=== PATIENT | female | born 1975 | race Caucasian/White ===

== ENCOUNTER 2020-05-16 11:32 | Emergency (ER) | payer SELFPAY ==
[2020-05-16 11:55] VITALS: BP 129/94; PULSE 96; RESP 18; TEMP 36.6; O2SAT 96
--- NOTE | 2020-05-16 12:07 | ED.GENADULT ---
HPI - General Adult General Chief complaint: Back Pain/Injury Stated complaint: Radiating Lower Back Pain Time Seen by Provider: 05/16/20 12:07 Source: patient and RN notes reviewed Mode of arrival: ambulatory Limitations: no limitations History of Present Illness HPI narrative: 44-year-old female presents with complaints of right lower back with pain radiating down right leg for the past 21 days. Jeanie reports pain has increased over the past 48 hours. Ultram and Flexeril last on May 15, 2019 and Tylenol last this morning at 2 AM without relief. Denies new injuries or falls. Denies radiating pain, numbness, or tingling. Denies fever or chills. No upper or lower extremity pain or weakness. Exacerbating factors consist of prolong standing and bending. Denies nausea, vomiting, or abdominal pain. Tolerating po intake well. Denies problems with urinating or having a bowel movement, LBM 05/16/19 per patient and normal. No flank pain or hematuria or dysuria. LMP 04/18/20. Remains active. The patient reports she have not been diagnosed with COVID-19. The patient reports she is not waiting for the results of a COVID-19 lab test. The patient reports she do not have fever, chills, weakness, or fatigue. The patient reports she do not have a new or worsening cough or shortness of breath. Denies chest pain. The patient reports she do not have any rhinorrhea, congestion, sore throat, loss of taste, and diarrhea. Denies recent traveling. Denies concerns for COVID-19 or exposures been home with limited outdoor exposure except for essential household needs, work, and return home. At this time, patient is not suspected of having COVID-19. Some parts of this dictation were generated by voice recognition software and may contain typographical and/or grammatical inaccuracies. Related Data Allergies Allergy/AdvReac Type Severity Reaction Status Date / Time Sulfa (Sulfonamide Allergy Unknown Rash Verified 05/16/20 12:02 Antibiotics) Review of Systems Review of Systems: Narrative: CONSTITUTIONAL: Denies fever, chills, sweats. EYES: Denies visual changes, redness, discharge. ENT: Denies rhinorrhea, congestion, sore throat, otalgia. CARDIOVASCULAR: Denies chest pain, palpitations, edema. RESPIRATORY: Denies dyspnea, wheezing, cough. GASTROINTESTINAL: Denies abdominal pain, nausea, vomiting, diarrhea. GENITOURINARY: Denies dysuria, hematuria, abnormal discharge. SKIN: Denies rash or itching. MUSCULOSKELETAL: Complains of RT lower back pain with pain radiating down right leg, denies joint pain or myalgia. NEUROLOGIC: Denies numbness or focal weakness. PSYCHIATRIC: Denies anxiety or depression. All systems reviewed & are unremarkable except as noted in HPI and below PMFSH Past Medical History Medical History (Updated 05/17/20 @ 00:00 by Vik Austin) delivery delivered Endometriosis Hernia Umbilical Nerve damage Surgical History Surgical History (Updated 05/16/20 @ 12:49 by YESSENIA Chase) H/O section X2 History of colonoscopy History of dental surgery History of esophagogastroduodenoscopy (EGD) X2 History of hernia surgery Umbilical hernia History of laminectomy Family History Family History (Updated 05/16/20 @ 12:51 by YESSENIA Chase) Father Unknown family medical history Mother Hypertension Grandparent Hypertension Diabetes mellitus Hypercholesteremia Social History Social History (Updated 05/16/20 @ 12:52 by YESSENIA Chase) Smoking packs per day: 1 Smoking cigarettes per day: 20.0 Years smoked: 30 Smoking pack-years: 30.00 Smoking status: Current every day smoker Second hand tobacco smoke exposure: Yes Alcohol intake: current Substance use: current Substance use type: marijuana Living arrangements: with family Occupation/Education: occupation Gender identity (if verbalized by the patient): Female Sexual Orientation
[2020-05-16] MEDS: KETOROLAC (*BKC) 60 MG/2 ML VIAL IM (12:25)
[2020-05-16 12:33] VITALS: BP 118/78; PULSE 86
== END 2020-05-16 12:45 | disposition home or self-care (01) ==
PROVIDERS: Emergency Provider Nurse Practitioner Family; PCP Nurse Practitioner Family
DX: M54.41 Lumbago with sciatica, right side (principal); F17.210 Nicotine dependence, cigarettes, uncomplicated; N80.9 Endometriosis, unspecified
CPT/HCPCS: 96372; 99203; G0463; J1885

== ENCOUNTER 2024-03-03 13:52 | Emergency (ER) | payer SELFPAY ==
[2024-03-03 14:01] VITALS: BP 121/73; PULSE 67; RESP 16; TEMP 37.3; O2SAT 100
--- NOTE | 2024-03-03 15:24 | ED.DENTAL ---
HPI - Dental/Oral General Chief complaint: Dental/Oral Stated complaint: right side of face swollen Source: patient Mode of arrival: ambulatory Limitations: no limitations History of Present Illness HPI Narrative: Pt presents for evaluation of right lower dental pain. Symptom onset a few days ago. She has been gargling with salt water and hydrogen peroxide. Today, she woke from sleep with right sided facial swelling. She describes her pain as throbbing and states it is so severe that it has caused her to have episodes of crying. She denies any fever, chills, nausea, vomiting, probably breathing or swelling. She is a current everyday smoker. She states she cannot take NSAIDs due to CKD. Related Data Allergies Allergy/AdvReac Type Severity Reaction Status Date / Time Sulfa (Sulfonamide Allergy Unknown Rash Verified 05/16/20 12:02 Antibiotics) Review of Systems Review of Systems: CONSTITUTIONAL: Denies fever, chills, or sweats. EYES: Denies visual changes, redness, or discharge. ENT: Reports right lower dental pain with associated facial swelling CARDIOVASCULAR: Denies chest pain, palpitations, or edema. RESPIRATORY: Denies cough or dyspnea. GASTROINTESTINAL: Denies abdominal pain, nausea, vomiting, or diarrhea. GENITOURINARY: Denies dysuria or hematuria. SKIN: Denies rash or itching. MUSCULOSKELETAL: Denies back pain, joint pain, or myalgia. NEUROLOGIC: Denies headache, numbness, dizziness, or weakness. PSYCHIATRIC: Denies anxiety or depression. [facility] Past Medical History Medical History delivery delivered Endometriosis Hernia Umbilical Nerve damage Toothache Surgical History Surgical History H/O section X2 History of colonoscopy History of dental surgery History of esophagogastroduodenoscopy (EGD) X2 History of hernia surgery Umbilical hernia History of laminectomy Family History Family History Father Unknown family medical history Mother Hypertension Grandparent Hypertension Diabetes mellitus Hypercholesteremia Social History Social History Smoking packs per day: 1 Smoking cigarettes per day: 20.0 Years smoked: 30 Smoking pack-years: 30.00 Smoking status: Current every day smoker Second hand tobacco smoke exposure: Yes Alcohol intake: current Substance use: current Substance use type: marijuana Living arrangements: with family Occupation/Education: occupation Gender identity (if verbalized by the patient): Female Sexual Orientation (if Verbalized by the Patient): Straight or Heterosexual Exam Narrative: GENERAL: Well-appearing, well-nourished, and in no acute distress. HEAD: Normocephalic, atraumatic. EYES: PERRLA and EOMI. ENT: Nares clear, no rhinorrhea or epistaxis. Mucous membranes moist. Oropharynx without tonsillar hypertrophy exudate or other lesions. There are several absent teeth. There is erosion of the gumline to the lower teeth with significant plaque buildup. There is swelling to the mandible. There is no visible or palpable dental abscess. Bilateral TMs pearly lomas nonbulging NECK: Supple. No adenopathy or masses. No carotid bruits or JVD CHEST: Clear to auscultation. No respiratory distress. No wheezes rales or rhonchi HEART: Regular rate and rhythm. No murmur heard. Normal peripheral pulses. ABDOMEN: Soft, nontender, nondistended, normal active bowel sounds. EXTREMITIES: Normal range of motion. No edema. SKIN: Warm, dry, no rash. NEURO: No focal deficits. Alert and oriented x3. PSYCH: Normal mood and affect. Course Course Emergency Course: This is a 48 yr old female who presented for evaluation of right lower dental pain and facial swelling. She has no visible o
== END 2024-03-03 15:30 | disposition home or self-care (01) ==
PROVIDERS: Emergency Provider Nurse Practitioner; PCP Nurse Practitioner Family
DX: K04.7 Periapical abscess without sinus (principal); F17.210 Nicotine dependence, cigarettes, uncomplicated
CPT/HCPCS: 99213; G0463

== ENCOUNTER 2025-02-19 17:24 | Emergency (ER) | payer SELFPAY ==
[2025-02-19 17:32] VITALS: BP 132/77; PULSE 76; RESP 16; TEMP 37.2; O2SAT 100
--- NOTE | 2025-02-19 17:36 | ED.DENTAL ---
HPI - Dental/Oral General Chief complaint: Dental/Oral Stated complaint: Mouth Sore Time Seen by Provider: 02/19/25 17:40 Source: patient, RN notes reviewed and old records reviewed Mode of arrival: ambulatory Limitations: no limitations History of Present Illness HPI Narrative: 49 year old female who presents to [facility] care with complaints of dental pain to the lower front bottom tooth that is loose for the past 5 days. Patient reports that she has history of dental problems and total of 9 teeth on the bottom and has had upper teeth already pulled with dentures many years ago. Patient also reports that she noted small red lump under tongue today. Patient has no trismus or any swelling of face or any Jefry angina. Patient reports that she has been taking Tramadol MD Complaint: tooth pain Location: Tooth # (#24) Onset (ago): day(s) (5 days) Severity scale (1-10): 7 Exacerbating factors: chewing Treatment prior to arrival: oral analgesic (tramadol) Related Data Allergies Allergy/AdvReac Type Severity Reaction Status Date / Time Sulfa (Sulfonamide Allergy Unknown Rash Verified 02/19/25 17:28 Antibiotics) Review of Systems Review of Systems: CONSTITUTIONAL: Denies fever, chills, or sweats. ENT: Denies rhinorrhea, congestion, sore throat, or otalgia. Reports dental pain to left bottom front tooth #24 which is loose, has poor dentition to the lower remaining 9 teeth, no trismus or any Jefry angina, no facial swelling, small red raised bump under tongue no drainage or pustule formation CARDIOVASCULAR: Denies chest pain, palpitations, or edema. RESPIRATORY: Denies cough or dyspnea. SKIN: Denies rash or itching. MUSCULOSKELETAL: Denies myalgia. NEUROLOGIC: Denies headache All systems reviewed & are unremarkable except as noted in HPI and below PMFSH Past Medical History Medical History Toothache Hernia Umbilical Endometriosis delivery delivered Nerve damage Surgical History Surgical History History of hernia surgery Umbilical hernia History of esophagogastroduodenoscopy (EGD) X2 History of colonoscopy History of dental surgery H/O section X2 History of laminectomy Family History Family History Father Unknown family medical history Mother Hypertension Grandparent Hypertension Diabetes mellitus Hypercholesteremia Social History Social History Smoking packs per day: 1 Smoking cigarettes per day: 20.0 Years smoked: 30 Smoking pack-years: 30.00 Smoking status: Current every day smoker Second hand tobacco smoke exposure: Yes Alcohol intake: current Substance use: current Substance use type: marijuana Living arrangements: with family Occupation/Education: occupation Gender identity (if verbalized by the patient): Female Sexual Orientation (if Verbalized by the Patient): Straight or Heterosexual Comments At time of signature, agree with nursing past medical, surgical, social and family history. There is no relevant family history pertinent to the presenting complaint Exam Narrative: GENERAL: Well-appearing, well-nourished, and in no acute distress. HEAD: Normocephalic, atraumatic. EYES: PERRLA and EOMI. ENT: Nares clear, no rhinorrhea or epistaxis. Mucous membranes moist. Missing teeth, broken teeth, caries has upper dentures has total of 9 teeth on bottom with periodontal disease noted, #24 tooth is loose, small red raised no pustular lesion under tongue no trismus or any facial swelling. no Jefry angina NECK: Supple. no lymphadenopathy CHEST: Clear to auscultation. No respiratory distress.SAO2 100% on room air HEART: Regular rate and rhythm. No murmur heard. Normal peripheral pulses. SKIN: Warm, dry, no rash. NEURO: No focal deficits. Alert and oriented x3. Course Course Emergency Course: Patient is aware of diagnosis, understands and agrees to treatment plan. Anticipatory guidance given. Patient agrees to follow-up as directed and is aware of reasons to seek care at the emergency department. Portions of this record may have been created with voice recognition software Level of Care: Express Care Visit Vital Signs Vital signs: Vital Signs Temperature 37.2 C 02/19/25 17:32 Pulse Rate 76 02/19/25 17:32 Respiratory Rate 16 02/19/25 17:32 Blood Pressure 132/77 02/19/25 17:32 Pulse Oximetry 100 02/19/25 17:32 Oxygen Delivery Room Air 02/19/25 17:32 Temperature 37.2 C 02/19/25 17:32 Pulse Rate 76 02/19/25 17:32 Respiratory Rate 16 02/19/25 17:32 Blood Pressure 132/77 02/19/25 17:32 Pulse Oximetry 100 02/19/25 17:32 Oxygen Delivery Room Air 02/19/25 17:32 Reviewed MDM - Dental/Oral MDM Narrative Medical decision making narrative: Patients pain and complaint coupled with physical findings are consistent with dentalgia. There are no focal signs of space occupying lesions that are compromising to the airway; no dysphagia, odynophagia, dysphonia, or dyspnea. No uvular deviation or soft palate edema. Patient is non-toxic appearing. The floor of the mouth is soft with no signs of Jefry's Angina; no induration below mandible, no neck pain.? Patient is without trismus or drooling and able to swallow secretions.? Patient is felt appropriate for discharge home with dental follow up. Differential Diagnosis Differential diagnosis: Likely dental caries, toothache, aphthous ulcer and other (periodontal disease) Medical Records Attestation: I reviewed the patient's medical records. Critical Care Time Critical Care Time Critical Care Time: No Discharge Plan Discharge Clinical Impression: Toothache, Aphthous ulcer, Periodontal disease Patient Disposition: Home Condition: Stable Instructions: Antibiotic Form, Toothache (ED), Periodontal Disease (DC) Additional Instructions: Avoid temperature extremes May apply heat or ice to the face Gentle brushing and flossing Antibiotic as directed Tylenol for lesser pain Use ibuprofen regularly Viscous lidocaine apply to gums around affected tooth up to-4 times daily Follow-up with the dentist as soon as possible--see the list provided If your symptoms persist, change or worsen significantly before you can contact your personal physician then please, without delay, go to the emergency department for further evaluation. Follow-up with PCP in 7-10 days or sooner if needed Follow up with PCP soon in regards to your blood pressure which is elevated above threshold for referral. Blood pressure above 120/80 may indicate pre-hypertension. 132/77 Patient Language: Malian Prescriptions: New amoxicillin 875 mg tablet 875 mg PO Q12H Qty: 20 0RF Rx Instructions: take all doses of medication lidocaine HCl [Lidocaine Viscous] 2 % solution 1 applic mucous membrane QID PRN (Reason: pain) Qty: 100 0RF Rx Instructions: apply for dental pain Follow-up/Referrals: PHYSICIAN,ROUTING CLERK [Primary Care Provider, Internal Medicine] Stand Alone Forms: Work/School Release IP Time of Disposition: 17:51 Quality [place] Coma Scale Eyes: Open Verbal: Oriented and Alert Motor: Follows Commands [place] Coma Total Score: 15
== END 2025-02-19 17:59 | disposition home or self-care (01) ==
PROVIDERS: Emergency Provider Registered Nurse
DX: K08.89 Other specified disorders of teeth and supporting structures (principal); K12.0 Recurrent oral aphthae; K05.6 Periodontal disease, unspecified; F17.210 Nicotine dependence, cigarettes, uncomplicated; F12.90 Cannabis use, unspecified, uncomplicated; N80.9 Endometriosis, unspecified
CPT/HCPCS: 99203; G0463